=== PATIENT | female | born 1975 | race Caucasian/White ===

== ENCOUNTER 2020-03-19 15:47 | Outpatient (REF) | payer MEDICAID, SELFPAY ==
[2020-03-19 18:49] LABS: Absolute Basophil Count 0.01 k/cumm (0.0-0.2); Absolute Eosinophil Count 0.27 k/cumm (0.0-0.7); Absolute Lymphocyte Count 1.52 k/cumm (1.2-3.4); Absolute Monocyte Count 0.42 k/cumm (0.11-0.7); Absolute Neutrophil Count 2.32 k/cumm (1.2-6.7); Basophils % 0.2; Eosinophils % 5.9; HCT 36.8 % (36.0-46.0); HGB 11.6 g/dL (12.0-15.5); Lymphocytes % 33.5; Mean Corp. HGB Concentration 31.5 g/dL (32.0-36.0); Mean Corpuscular Hemoglobin 27.2 pg (27.0-33.0); Mean Corpuscular Volume 86.2 fL (80-95); Mean Platelet Volume 10.9 fL (8.0-11.0); Monocytes % 9.3; Neutrophils % 51.1; Platelet Count 256 x1000/uL (130-400); RBC 4.27 m/cumm (4.00-5.20); RBC Distribution Width 13.2 % (11.7-14.6); White Blood Cell Count 4.54 k/cumm (4.4-10.8)
[2020-03-19 19:29] LABS: ALT 17 U/L (14-59); AST 20 U/L (15-37); Albumin 3.2 g/dL (3.4-5.0); Alkaline Phosphatase 69 U/L (46-116); Anion Gap 5.3 mmol/L (3-11); BUN 11 mg/dL (7-18); Bilirubin, Total 0.2 mg/dL (0.2-1.0); CO2 27.7 mmol/L (21.0-32.0); CREATININE 0.86 mg/dL (0.55-1.02); Calcium 8.6 mg/dL (8.5-10.1); Chloride 107 mmol/L (98-107); Glucose 76 mg/dL (74-106); Potassium 4.2 mmol/L (3.5-5.1); Sodium 140 mmol/L (136-145); TSH (W/Ref FT4) 1.91 uIU/mL (0.36-3.74); Total Protein 6.7 g/dL (6.4-8.2); Vitamin B12 235 pg/mL (193-986)
== END 2020-03-19 16:07 ==
LOC: NCHCN 15:47
PROVIDERS: PCP Internal Medicine; Visit Provider Physician Assistant
DX: F32.9 Major depressive disorder, single episode, unspecified (principal); D64.9 Anemia, unspecified
CPT/HCPCS: 80053; 82306; 82607; 84443; 85025

== ENCOUNTER 2021-01-12 12:59 | Outpatient (REF) | payer MEDICAID, SELFPAY ==
[2021-01-13 14:31] LABS: COVID-19 RT-PCR UVMMC Result Negative (Negative)
== END 2021-01-12 13:00 | disposition home or self-care (01) ==
LOC: NCHCN 12:59
PROVIDERS: PCP Internal Medicine; Visit Provider Internal Medicine
DX: Z20.822 Contact with and (suspected) exposure to COVID-19 (principal)
CPT/HCPCS: U0003

== ENCOUNTER 2021-06-15 18:43 | Outpatient (REF) | payer MEDICAID, SELFPAY ==
[2021-06-15 18:39] LABS: HGB 10.9 g/dL (11.2-15.7); MCH 27.4 pg (27.0-33.0); MCHC 31.1 % (32.0-36.0); MCV 87.9 fL (80-95); MPV 9.7 fL (8.0-11.0); Platelet Count 307 10^3/uL (130-400); RBC 3.98 10^6/uL (3.93-5.22); RDW 15.5 % (11.7-14.6); RDW-SD 49.9 fL; WBC 6.53 10^3/uL (4.4-10.8)
[2021-06-15 19:19] LABS: ALT 18 U/L (14-59); AST 21 U/L (15-37); Albumin 3.1 g/dL (3.4-5.0); Alkaline Phosphatase 121 U/L (46-116); Anion Gap 6.8 mmol/L (3-11); BUN 13 mg/dL (7-18); Bilirubin, Total 0.2 mg/dL (0.2-1.0); CO2 29.2 mmol/L (21.0-32.0); CREATININE 1.1 mg/dL (0.55-1.02); Calcium 8.7 mg/dL (8.5-10.1); Chloride 104 mmol/L (98-107); Estimated GFR 54.21 (mL/min/1.73m2); Glucose 76 mg/dL (74-106); Potassium 4.5 mmol/L (3.5-5.1); Sodium 140 mmol/L (136-145); TSH (W/Ref FT4) 1.97 uIU/mL (0.36-3.74); Total Protein 7.1 g/dL (6.4-8.2)
[2021-06-15 19:37] LABS: Iron 27 ug/dL (50-170); Total Iron Binding Capacity 465 ug/dL (250-450); Transferrin Sat 6 % (15-50)
[2021-06-15 19:41] LABS: Hemoglobin A1C 4.8 % (<5.7)
[2021-06-15 20:07] LABS: Calculated LDL 76 mg/dL (<100); Cholesterol 175 mg/dL (<200); HDL Cholesterol 74 mg/dL (40-60); Triglyceride 127 mg/dL (<150); Vitamin B12 194 pg/mL (193-986)
[2021-06-16 12:07] LABS: Magnesium 1.9 mg/dL (1.8-2.4)
[2021-06-17 00:39] LABS: Vitamin D 25 Total 11.9 ng/mL (30-100)
== END 2021-06-15 18:44 | disposition home or self-care (01) ==
LOC: NCHCN 18:43
PROVIDERS: PCP Internal Medicine; Visit Provider Nurse Practitioner Family
DX: E53.8 Deficiency of other specified B group vitamins (principal); E55.9 Vitamin D deficiency, unspecified; E66.01 Morbid (severe) obesity due to excess calories; Z68.41 Body mass index [BMI] 40.0-44.9, adult; Z83.49 Family history of other endocrine, nutritional and metabolic diseases; Z98.84 Bariatric surgery status; R79.89 Other specified abnormal findings of blood chemistry; F32.9 Major depressive disorder, single episode, unspecified
CPT/HCPCS: 80053; 80061; 82306; 85027; 82607; 83036; 83540; 83550; 83735; 84443

== ENCOUNTER 2021-09-14 09:36 | Outpatient (REF) | payer MEDICAID, SELFPAY ==
[2021-09-15 15:04] LABS: COVID-19 RT-PCR UVMMC Result Negative (Negative)
== END 2021-09-14 09:37 | disposition home or self-care (01) ==
LOC: NCHCN 09:36
PROVIDERS: PCP Internal Medicine; Visit Provider Nurse Practitioner Family
DX: Z20.822 Contact with and (suspected) exposure to COVID-19 (principal); J02.9 Acute pharyngitis, unspecified
CPT/HCPCS: U0003

== ENCOUNTER 2024-07-10 17:45 | Outpatient (REF) | payer MEDICAID, SELFPAY ==
[2024-07-10 19:49] LABS: ALT 26 U/L (14-59); AST 31 U/L (15-37); Albumin 3.3 g/dL (3.4-5.0); Alkaline Phosphatase 90 U/L (46-116); Anion Gap 11.7 mmol/L (3-11); BUN 11 mg/dL (7-18); Bilirubin, Total 0.19 mg/dL (0.2-1.0); CO2 26.3 mmol/L (21.0-32.0); Calculated LDL 92 mg/dL (<100); Chloride 100 mmol/L (98-107); Cholesterol 190 mg/dL (<200); Estimated GFR 70.36 (mL/min/1.73m2); Glucose 83 mg/dL (74-106); HDL Cholesterol 58 mg/dL (40-60); Potassium 3.9 mmol/L (3.5-5.1); Sodium 138 mmol/L (136-145); Total Protein 7.5 g/dL (6.4-8.2); Triglyceride 200 mg/dL (<150)
[2024-07-10 20:01] LABS: Hemoglobin A1C 5.1 % (<5.7)
[2024-07-11 20:47] LABS: HIV-1/2 Ag & Ab Screen Negative (Negative)
[2024-07-11 20:49] LABS: Hepatitis C Ab w Rflx HCV PCR Negative (Negative)
== END 2024-07-10 17:46 | disposition home or self-care (01) ==
LOC: NCHCN 17:45
PROVIDERS: PCP Internal Medicine; Visit Provider Nurse Practitioner Family
DX: Z00.00 Encounter for general adult medical examination without abnormal findings (principal); Z13.6 Encounter for screening for cardiovascular disorders; Z13.1 Encounter for screening for diabetes mellitus; E66.9 Obesity, unspecified
CPT/HCPCS: 80053; 80061; 86803; 87389; 83036

== ENCOUNTER 2025-03-10 02:48 | Outpatient (CLI) | payer MEDICAID, SELFPAY ==
--- NOTE | 2025-03-10 09:48 | DI.RAD_ITS ---
Exam(s) XR KNEE LT 3V AP,LAT,HUBER EXAM: XR KNEE LT 3V AP,LAT,HUBER CLINICAL HISTORY: LT KNEE PAIN,M25.562. TECHNIQUE: 2D digital imaging was performed. Three views. COMPARISON: CR ORTHO KNEE LEFT 4+VIEWS from 07/22/2019 FINDINGS: BONES: No acute fracture is present. No bony destructive lesion is seen. JOINTS: Severe narrowing of the lateral femoral tibial joint space causing valgus angulation. Periar ticular spurring and sclerosis. Medial femoral tibial joint space is maintained. Spurring at the ar ticular aspect of the patella. Shallow femoral joint is not well profiled. No joint effusion is see n. SOFT TISSUE: Normal. 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
== END 2025-03-10 03:08 ==
LOC: DI 02:48
PROVIDERS: PCP Internal Medicine; Visit Provider Nurse Practitioner Family
DX: M17.12 Unilateral primary osteoarthritis, left knee (principal)
CPT/HCPCS: 73562